=== PATIENT | female | born 1970 | race Caucasian/White ===

== ENCOUNTER 2024-11-21 10:18 | Emergency (ER) | payer OTHER ==
[~2024-11-21] VITALS: Ht 170.2 cm; Wt 56.9 kg
[2024-11-21] MEDS ORDERED: CYCLOBENZAPRINE10 MG PO (11:41)
[2024-11-21] MEDS ORDERED: CYCLOBENZAPRINE HCL 10 MG TAB PO ONE (11:45)
[2024-11-21] MEDS ORDERED: ACETAMINOPHEN 500 MG TAB PO ONE (11:45)
[2024-11-21 13:05] VITALS: BP 127/63
== END 2024-11-21 13:05 | disposition home or self-care (01) ==
LOC: ED 10:18
DX: S52.134A Nondisplaced fracture of neck of right radius, initial encounter for closed fracture (principal); V80.010A Animal-rider injured by fall from or being thrown from horse in noncollision accident, initial encounter; Y93.52 Activity, horseback riding
CPT/HCPCS: 29105; 73030; 73080; 73110; 99283-25; A9270